=== PATIENT | male | born 1955 | race Caucasian/White ===

== ENCOUNTER 2018-11-30 23:23 | Emergency (ER) | payer OTHER ==
[~2018-11-30] VITALS: Ht 177.8 cm; Wt 84.8 kg
[~2018-11-30 23:23] MED LIST: ASPI-495
--- NOTE | 2018-12-01 00:21 | NUR ---
BIB SELF C/O "I HAVE CLUSTER HEADACHE, I NEED OXYGEN, I RAN OUT OF OXYGEN"
[2018-12-01 01:39] VITALS: BP 123/68
--- NOTE | 2018-12-01 01:39 | NUR ---
Patient discharged to home in stable condition. Written and verbal after care instructions given. Patient verbalizes understanding of instruction.
== END 2018-12-01 01:39 | disposition home or self-care (01) ==
LOC: ER 23:23
DX: G44.009 Cluster headache syndrome, unspecified, not intractable (principal); Z79.82 Long term (current) use of aspirin